=== PATIENT | female | born 1955 | race Hispanic/Latino ===

== ENCOUNTER 2018-01-08 16:20 | Outpatient (CLI) | payer BC | END 2018-01-08 16:21 | disposition home or self-care (01) | LOC: BICMAMMO 16:20 | PROVIDERS: ATTEND Internal Medicine | DX: Z12.31 Encounter for screening mammogram for malignant neoplasm of breast (principal); Z85.3 Personal history of malignant neoplasm of breast; Z80.3 Family history of malignant neoplasm of breast | CPT/HCPCS: 77063; 77067 ==

== ENCOUNTER 2019-06-22 15:59 | Emergency (ER) | payer BC ==
[~2019-06-22 15:59] MED LIST: Iopamidol-370 76% 500 ML 1 ML ONE
[2019-06-22] MEDS ORDERED: Ondansetron PF 4 MG/2 ML Vial ONE (17:37)
[2019-06-22] MEDS ORDERED: Morphine 4 MG/ML VIAL ONE (17:37)
[2019-06-22 17:55] LABS: #Basophils 0.1 thou/uL (0.0-0.2); #Eosinphils 0.2 thou/uL (0.0-0.7); #Lymphocytes 4.2 thou/uL (1.20-3.40); #Monocytes 0.7 thou/uL (0.11-0.59); #Neutrophils 5.6 thou/uL (1.40-6.50); %Eosinophils 1.5 % (0.0-10.0); %Monocytes 6.9 % (0.0-10.0); %Neutrophils 51.6 % (42.0-75.0); Mean Corpuscular HGB CONC 33.8 g/dL (32.0-36.0); Mean Corpuscular Hemoglobin 32.5 pg (27.0-31.0); Mean Corpuscular Volume 96.1 fL (78.0-98.0); Platelet Count 271 thou/uL (130-400); RBC Distribution Width 12.1 % (11.5-14.5); Red Blood Cell (RBC) Count 4.92 mill/uL (4.20-5.40); White Blood Cell (WBC) Count 10.8 thou/uL (4.8-10.8)
[2019-06-22 18:17] LABS: ALT (SGPT) 8 U/L (8-55); AST (SGOT) 16 U/L (5-34); Albumin 4.4 g/dL (3.4-4.8); Alkaline Phosphatase 102 U/L (40-110); Anion Gap 11 mmol/L (10-20); BUN (Urea Nitrogen) 13 mg/dL (9.8-20.1); Bilirubin, Total 0.3 mg/dL (0.2-1.2); Calc. Creatinine Clearance 0 mL/min (70-130); Carbon Dioxide 27 mmol/L (23-31); Chloride 106 mmol/L (98-107); Estimated GFR-MDRD 79; Globulin 3.2 g/dL (2.4-3.5); Glucose 112 mg/dL (80-115); Potassium 3.9 mmol/L (3.5-5.1); Protein, Total 7.6 g/dL (6.0-8.3); Sodium 140 mmol/L (136-145)
--- NOTE | 2019-06-22 20:05 | CT ---
CTA OF THE CHEST WITH CONTRAST CTA OF THE ABDOMEN AND PELVIS: History: Pain in the right upper thigh on the outer side that is burning in appearance. 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 Comparison: CTA 03-11-13, CTA 11-22-07,CTA chest 03-16-16. Technique: 1. Multiple contiguous axial images were obtained in a CTA of the chest with contrast for aortic diss ection protocol. Sagittal and coronal reformats were performed. 2. Multiple contiguous axial images were obtained in a CTA of the abdomen and pelvis with contrast. 3 D sagittal and coronal MIP reformats were performed. FINDINGS: There are stable areas of nodularity in the peripheral aspect of the left lower lobe measuring up to 9 mm in size. No new pulmonary nodules are seen. The heart is normal in size without focal cardiac ab normality. Calcifications are seen in the coronary arteries. No hilar or mediastinal lymphadenopathy are seen. Degenerative changes are seen in the thoracic spine. The visualized chest wall soft tissues are unrem arkable. CT ABDOMEN/PELVIS: The gallbladder has been removed. There is a hypodensity adjacent to the falciform ligament within th e liver which likely represents a small cyst and is unchanged. The kidneys, adrenal glands, spleen, a nd pancreas are unremarkable. No free air, free fluid, or stranding changes are seen in the abdomen or pelvis. Scattered diverticul a are seen in the colon. The small bowel is normal in appearance. No abdominal or pelvic lymphadenopa thy are seen . The thoracic and abdominal aorta are normal in caliber without evidence of aneurysmal dilatation. No focal dissection of the aorta is seen. The celiac trunk, SMA, and MARTINEZ are patent without significant osteal atherosclerotic disease. A single renal artery is seen on each side without significant osteo atherosclerotic disease. There is stable occlusion of the proximal aspect of the right common iliac artery just distal to the bifurcation. There is reconstitution of flow at the bifurcation of the right common femoral artery vi a collateral flow from the internal iliac artery. This provides flow to the right external iliac caleb ry and common femoral artery. Moderate disease is seen surrounding this bifurcation. The collateral f low appears to come from lower lumbar perforators immediately above the aortic bifurcation and from v essels across the pelvis from the left internal iliac artery. Moderate atherosclerotic disease is see n in the left common and internal iliac artery with no significant atherosclerotic disease in the lef t external iliac artery. Mild nonfocal atherosclerotic disease is seen in both common femoral arteries. The profunda femoral a rteries and superficial femoral arteries are patent bilaterally without significant focal proximal at herosclerotic disease. IMPRESSION: 1. 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 This occlusion has been stable compared to exams dating back to 2007. There is been re-establishment of flow to the right leg via collateral s in the pelvis. 2. Diverticulosis. 3. Stable left pulmonary nodules. 4. Hypodensity in the liver likely represents a small cyst. POS: EAA
== END 2019-06-22 19:57 | disposition home or self-care (01) ==
LOC: ERS 15:59
DX: G57.11 Meralgia paresthetica, right lower limb (principal); M25.551 Pain in right hip; I83.91 Asymptomatic varicose veins of right lower extremity; I25.10 Atherosclerotic heart disease of native coronary artery without angina pectoris; I25.2 Old myocardial infarction; E78.5 Hyperlipidemia, unspecified
CPT/HCPCS: 71275; 72191; 74175; 80053; 85025; 96374; 96375; J2270; J2405; Q9967

== ENCOUNTER 2021-02-25 10:18 | Outpatient (CLI) | payer MEDICARE, OTHER | END 2021-02-25 10:19 | disposition home or self-care (01) | LOC: BICMRI 10:18 | PROVIDERS: ATTEND Family Medicine | DX: M47.22 Other spondylosis with radiculopathy, cervical region (principal); M48.02 Spinal stenosis, cervical region | CPT/HCPCS: 72040; 72141 ==

== ENCOUNTER 2021-05-13 08:48 | Outpatient (CLI) | payer BC, MEDICARE, OTHER ==
[2021-05-13 10:39] LABS: Mean Corpuscular HGB CONC 33.7 g/dL (32.0-36.0); Mean Corpuscular Hemoglobin 31.4 pg (27.0-33.0); Mean Corpuscular Volume 93.1 fl (81.6-98.3); Mean Platelet Volume 9.3 fl (7.4-10.4); Platelet Count 290 10x3/uL (150-450); RBC Distribution Width 13.2 % (11.5-14.5); Red Blood Cell (RBC) Count 4.78 10x6/uL (3.90-5.03); White Blood Cell (WBC) Count 7.9 10x3/uL (3.5-10.5)
[2021-05-13 10:47] LABS: Anion Gap 13 mmol/L (10-20); BUN (Urea Nitrogen) 11 mg/dL (9.8-20.1); Calc. Creatinine Clearance 0 mL/min (70-130); Calcium 9.2 mg/dL (7.8-10.44); Carbon Dioxide 23 mmol/L (23-31); Chloride 106 mmol/L (98-107); Glucose 105 mg/dL (80-115); Potassium 4.3 mmol/L (3.5-5.1); Sodium 138 mmol/L (136-145)
[2021-05-13 21:02] LABS: SARS-CoV-2 PCR by NAA Not Detected (NotDetected)
== END 2021-05-13 08:49 | disposition home or self-care (01) ==
LOC: LABBT 08:48
PROVIDERS: ATTEND Neurological Surgery
DX: Z01.818 Encounter for other preprocedural examination (principal); M54.12 Radiculopathy, cervical region; Z20.822 Contact with and (suspected) exposure to COVID-19
CPT/HCPCS: 80048; 85027; 93005; 93010; U0003; U0005

== ENCOUNTER 2021-05-18 05:47 | Day surgery (SDC) | payer MEDICARE, OTHER ==
[2021-05-13 12:39] VITALS: BMI 39.4
[2021-05-18] MEDS ORDERED: Thrombin 5000 UNITS/5 ML VIAL ONE (06:43)
[2021-05-18] MEDS ORDERED: Ketamine 50 MG/ML (10ML VIAL) ONE (06:48)
[2021-05-18] MEDS ORDERED: Fentanyl 250 MCG/5 ML VIAL ONE (06:48)
[2021-05-18] MEDS ORDERED: Albuterol Sulfate HFA (OR ONLY) ONE ×2 (06:48→07:13)
[2021-05-18] MEDS ORDERED: ceFAZolin (BATCH) 2 GM/100 ML BAG ONE ×2 (06:52→10:59)
[2021-05-18] MEDS ORDERED: Midazolam HCl 2 mg/2 ml Vial ONE (06:59)
[2021-05-18] MEDS ORDERED: PROPOFOL 200 MG/20 ML VIAL ONE (07:13)
[2021-05-18] MEDS ORDERED: Ondansetron PF 4 MG/2 ML Vial ONE (07:13)
[2021-05-18] MEDS ORDERED: Lidocaine 1% PF 5 ML VIAL ONE ×2 (07:13)
[2021-05-18] MEDS ORDERED: Dexamethasone 20 MG/5 ML VIAL ONE (07:13)
[2021-05-18] MEDS ORDERED: PHENYLEPHRINE-NS 100 MCG/ML 10 ML SYRINGE ONE (07:13)
[2021-05-18] MEDS ORDERED: Rocuronium Bromide 10 MG/ML (10ML VIAL) ONE (07:13)
[2021-05-18] MEDS ORDERED: SUGAMMADEX SODIUM 200 MG/2 ML VIAL ONE (08:27)
[2021-05-18] MEDS ORDERED: HYDROcodone/Acetaminophen 5/325 mg Tablet ONE (09:59)
== END 2021-05-18 11:49 | disposition home or self-care (01) ==
LOC: SDC 05:47
PROVIDERS: ATTEND Neurological Surgery
PROC: 0RG20A0 Fusion of 2 or more Cervical Vertebral Joints with Interbody Fusion Device, Anterior Approach, Anterior Column, Open Approach (ICD-10-PCS; principal; 2021-05-18)
DX: M54.12 Radiculopathy, cervical region (principal); Z79.02 Long term (current) use of antithrombotics/antiplatelets; Z79.82 Long term (current) use of aspirin; Z79.899 Other long term (current) drug therapy; Z91.048 Other nonmedicinal substance allergy status; Z95.5 Presence of coronary angioplasty implant and graft
CPT/HCPCS: 20930; 20936; 22551; 22552; 22845; 22853 ×2; 76000; C1713 ×3; C1776 ×2; J0690; J1100; J2250; J2405; J2704; J3010

== ENCOUNTER 2022-03-15 07:26 | Outpatient (CLI) | payer MEDICARE, OTHER ==
[2022-03-15] MEDS ORDERED: Iopamidol 370 76% 100 ML VIAL ONE (14:59)
== END 2022-03-15 07:27 | disposition home or self-care (01) ==
LOC: CT 07:26
PROVIDERS: ATTEND Internal Medicine Cardiovascular Disease
DX: I73.9 Peripheral vascular disease, unspecified (principal); I74.5 Embolism and thrombosis of iliac artery; K76.0 Fatty (change of) liver, not elsewhere classified; I70.0 Atherosclerosis of aorta; K57.30 Diverticulosis of large intestine without perforation or abscess without bleeding; R91.8 Other nonspecific abnormal finding of lung field; Z90.49 Acquired absence of other specified parts of digestive tract; Z90.710 Acquired absence of both cervix and uterus
CPT/HCPCS: 75635; 82565

== ENCOUNTER 2025-01-21 11:52 | Inpatient (IN) | payer MEDICARE, OTHER ==
[~2025-01-21 11:52] MED LIST changes: +Iopamidol 370 76% 100 ML VIAL ONE; -Iopamidol-370 76% 500 ML 1 ML ONE
[2025-01-21 12:20] LABS: #Basophils 0.06 10x3/uL (0.0-0.2); #Eosinophils 0.14 10x3/uL (0.0-0.7); #Monocytes 0.48 10x3/uL (0.11-0.59); #Neutrophils 4.34 10x3/uL (1.40-6.50); %Basophils 0.8 % (0.0-1.0); %Eosinophils 1.9 % (0.0-10.0); %Lymphocytes 31.9 % (21.0-51.0); %Monocytes 6.5 % (0.0-10.0); %Neutrophils 58.6 % (42.0-75.0); Hematocrit 46.7 % (36.0-47.0); Hemoglobin 15.9 g/dL (12.0-16.0); Mean Corpuscular Hemoglobin 30.9 pg (27.0-31.0); Mean Corpuscular Volume 90.7 fL (78.0-98.0); Platelet Count 241 10x3/uL (130-400); Red Blood Cell (RBC) Count 5.15 mill/uL (4.20-5.40); White Blood Cell (WBC) Count 7.40 10x3/uL (4.8-10.8)
[2025-01-21 12:34] LABS: INR-International Normal Ratio 0.9; Prothrombin Time 12.1 sec (12.0-14.7)
[2025-01-21 12:35] LABS: PTT 29.1 sec (22.9-36.1)
[2025-01-21 12:42] LABS: ALT (SGPT) 11 U/L (Less than 34); AST (SGOT) 25 U/L (11-34); Albumin 3.8 g/dL (3.1-4.5); Alkaline Phosphatase 133 U/L (40-110); Anion Gap 14 mmol/L (10-20); BUN (Urea Nitrogen) 10 mg/dL (9.8-20.1); Bilirubin, Total 0.6 mg/dL (0.3-1.2); Calc. Creatinine Clearance 0 mL/min (70-130); Calcium 9.7 mg/dL (7.8-10.44); Carbon Dioxide 27 mmol/L (23-31); Chloride 105 mmol/L (98-107); Globulin 3.5 g/dL (2.4-3.5); Glucose 124 mg/dL (80-115); Potassium 3.6 mmol/L (3.5-5.1); Sodium 142 mmol/L (136-145)
[2025-01-21] MEDS ORDERED: Aspirin Chewable 81 MG TAB ONE (13:12)
[2025-01-21] MEDS ORDERED: Senokot S 8.6-50 MG TAB PO PRN (14:15)
[2025-01-21] MEDS ORDERED: hydrALAZINE 20 MG/ML VIAL SLOW IVP PRN (14:15)
[2025-01-21] MEDS ORDERED: Acetaminophen 325 MG TAB PO PRN (14:15)
[2025-01-21 18:42] VITALS: BMI 37.1
[2025-01-21] MEDS: ALPRAZolam 0.5 MG TAB PO PRN (19:17)
[2025-01-21] MEDS: Famotidine 20 MG TAB PO SCH (20:27)
[2025-01-22 05:05] LABS: Anion Gap 15 mmol/L (10-20); BUN (Urea Nitrogen) 10 mg/dL (9.8-20.1); Calc. Creatinine Clearance 123 mL/min (70-130); Calcium 9.4 mg/dL (7.8-10.44); Carbon Dioxide 26 mmol/L (23-31); Cardiac Risk 4.2 (Less than 4.5); Chloride 104 mmol/L (98-107); Cholesterol 140 mg/dl (< 200 Desired); Glucose 115 mg/dL (80-115); HDL Cholesterol 33 mg/dL (>60 Neg Risk); LDL Cholesterol, Calculated 72 mg/dL; Potassium 3.3 mmol/L (3.5-5.1); Sodium 142 mmol/L (136-145); Triglycerides 173 mg/dL (Less than 150)
[2025-01-22] MEDS: Enoxaparin 40 MG (0.4 mL) SYRINGE SC SCH (09:21)
[2025-01-22] MEDS: Aspirin 81 mg Enteric Coated Tablet PO SCH (09:22)
[2025-01-23 11:49] VITALS: TEMP 97.9
[2025-01-23 16:01] VITALS: BP 118/79
== END 2025-01-23 20:45 | disposition home or self-care (01) | DRG 65 ==
LOC: ERS 11:52 → ERHOLD 13:30 → 2SE 17:33 → OBSVTOIN 01-22 13:45
PROVIDERS: ADMIT Family Medicine; ATTEND Internal Medicine
DX: I63.89 Other cerebral infarction (principal); G81.94 Hemiplegia, unspecified affecting left nondominant side; R29.703 NIHSS score 3; I25.10 Atherosclerotic heart disease of native coronary artery without angina pectoris; I10 Essential (primary) hypertension; F17.210 Nicotine dependence, cigarettes, uncomplicated; F10.90 Alcohol use, unspecified, uncomplicated; E78.5 Hyperlipidemia, unspecified; R29.810 Facial weakness; Z90.11 Acquired absence of right breast and nipple; Z85.3 Personal history of malignant neoplasm of breast; I25.2 Old myocardial infarction; Z98.890 Other specified postprocedural states; Z95.5 Presence of coronary angioplasty implant and graft; Z90.2 Acquired absence of lung [part of]; Z90.49 Acquired absence of other specified parts of digestive tract; Z90.710 Acquired absence of both cervix and uterus; Z98.51 Tubal ligation status; Z91.048 Other nonmedicinal substance allergy status; Z91.148 Patient's other noncompliance with medication regimen for other reason
CPT/HCPCS: 0042T; 36415; 36416; 70450; 70496; 70551; 71045; 80048; 80053; 80061; 83036; 84443; 84484; 85025; 85610; 85730; 93005; 93306; 94760; 96372; G0378; J1650; Q9957; Q9967